=== PATIENT | female | born 1985 | race Caucasian/White ===

== ENCOUNTER 2017-04-22 00:21 | Emergency (ER) | payer OTHER ==
[2017-04-22 00:39] VITALS: BP 118/79; PULSE 88; BMI 24.2
--- NOTE | 2017-04-22 02:03 | PDOC ---
History of Present Illness - General History Source: Patient Exam Limitations: No Limitations <Gary Guido - Last Filed: 04/22/17 02:03> <Jacquie Quevedo - Last Filed: 04/23/17 01:37> - General Chief Complaint: Chest Pain Stated Complaint: CHEST PAIN Time Seen by Provider: 04/22/17 00:47 - History of Present Illness Initial Comments: 04/22/17 02:03 Patient is a 31-year-old female with a significant past medical history of bipolar disorder, who presents to the ED via EMS for left sided chest pain. Patient states that the chest pain began at 11:15 PM but has dissipated after taking 1 bruce pill. She describes the left sided chest pain as sharp and throbbing. She complains of left arm weakness and sharp pain in the right arm. She denies SOB, palpitations, fever, chills, nausea, vomiting, diarrhea. She denies dysuria, frequency, hematuria. She states this feels different from her anxiety attacks. She smokes two cigarettes a day for the past year. (Gary Guido) Past History <Gary Guido - Last Filed: 04/22/17 02:03> - Past Medical History Psychiatric Problems: Yes (ANXIETY.) Suicide Attempt (Hx): No - Surgical History Abdominal Surgery: Yes (cyst removal, Rt breast/low back) Cholecystectomy: Yes - Psycho/Social/Smoking Cessation Hx Anxiety: Yes Suicidal Ideation: No Smoking Status: Yes Smoking History: Current every day smoker Have you smoked in the past 12 months: No Number of Cigarettes Smoked Daily: 1 Information on smoking cessation initiated: No 'Breaking Loose' booklet given: 01/22/14 Hx Alcohol Use: No Drug/Substance Use Hx: No Substance Use Type: None <Jacquie Quevedo - Last Filed: 04/23/17 01:37> - Past Medical History Allergies/Adverse Reactions: Allergies Allergy/AdvReac Type Severity Reaction Status Date / Time No Known Allergies Allergy Verified 03/01/15 15:11 Home Medications: Ambulatory Orders LamoTRIgine [LaMICtal] 150 mg PO DAILY 03/01/15 Review of Systems - Review of Systems Able to Perform ROS?: Yes <Gary Guido - Last Filed: 04/22/17 02:03> <Jacquie Quevedo - Last Filed: 04/23/17 01:37> - Review of Systems Comments:: 04/22/17 02:05 CONSTITUTIONAL: Absent: fever, chills, diaphoresis, generalized weakness, malaise, loss of appetite HEENT: Absent: rhinorrhea, nasal congestion, throat pain, throat swelling, difficulty swallowing, mouth swelling, ear pain, eye pain, visual Changes CARDIOVASCULAR: Present: left sided chest pain Absent: syncope, palpitations, irregular heart rate, lightheadedness, peripheral edema RESPIRATORY: Absent: cough, shortness of breath, dyspnea with exertion, orthopnea, wheezing, stridor, hemoptysis GASTROINTESTINAL: Absent: abdominal pain, abdominal distension, nausea, vomiting, diarrhea, constipation, melena, hematochezia GENITOURINARY: Absent: dysuria, frequency, urgency, hesitancy, hematuria, flank pain, genital pain MUSCULOSKELETAL: Present: left arm weakness. sharp pain in the right arm. Absent: myalgia, arthralgia, joint swelling SKIN: Absent: rash, itching, pallor HEMATOLOGIC/IMMUNOLOGIC: Absent: easy bleeding, easy bruising, lymphadenopathy, frequent infections ENDOCRINE: Absent: unexplained weight gain, unexplained weight loss, heat intolerance, cold intolerance NEUROLOGIC: Absent: headache, focal weakness or paresthesias, dizziness, unsteady gait, seizure, mental status changes, bladder or bowel incontinence PSYCHIATRIC: Absent: anxiety, depression, suicidal or homicidal ideation, hallucinations. (Gary Guido) *Physical Exam <Gary Guido - Last Filed: 04/22/17 02:03> <SaeJacquie Sangeetha - Last Filed: 04/23/17 01:37> - Vital Signs Last Vital Signs Temp Pulse Resp BP Pulse Ox 88 16 118/79 98 04/22/17 00:37 04/22/17 00:37 04/22/17 00:37 04/22/17 00:37 - Physical Exam Comments: 04/22/17 02:07 GENERAL: Well developed, well nourished. Awake and alert. No acute distress. HEENT: Normocephalic, atraumatic. PERRLA, EOMI. No conjunctival pallor. Sclera are non- icteric. Moist mucous membranes. Oropharynx is clear. NECK: Supple. Full ROM. No JVD. Carotid pulses 2+ and symmetric, without bruits. No thyromegaly. No lymphadenopathy. CARDIOVASCULAR: Regular rate and rhythm. No murmurs, rubs, or gallops. Distal pulses are 2+ and symmetric. PULMONARY: No evidence of respiratory distress. Lungs clear to auscultation bilaterally. No wheezing, rales or rhonchi. ABDOMINAL: Soft. Non-tender. Non-distended. No rebound or guarding. No organomegaly. Normoactive bowel sounds. MUSCULOSKELETAL Normal range of motion at all joints. No bony deformities or tenderness. No CVA tenderness. EXTREMITIES: No cyanosis. No clubbing. No edema. No calf tenderness. SKIN: Warm and dry. Normal capillary refill. No rashes. No jaundice. NEUROLOGICAL: Alert, awake, appropriate. Cranial nerves 2-12 intact. No deficits to light touch and temperature in face, upper extremities and lower extremities. No motor deficits in the in face, upper extremities and lower extremities. Normoreflexic in the upper and lower extremities. Normal speech. Toes are down-going bilaterally. Gait is normal without ataxia. PSYCHIATRIC: Cooperative. Good eye contact. Appropriate mood and affect. (Gary Guido) ED Treatment Course - LABORATORY CBC & Chemistry Diagram: 04/22/17 02:00 04/22/17 02:00 <Jacquie Quevedo - Last Filed: 04/23/17 01:37> - ADDITIONAL ORDERS Additional order review: 04/22/17 02:00 RBC 3.65 MCV 86.3 MCHC 33.2 RDW 14.4 MPV 9.6 Neutrophils % 61.4 Lymphocytes % 26.7 D Monocytes % 7.8 Eosinophils % 3.3 D Basophils % 0.8 *DC/Admit/Observation/Transfer <Gary Guido - Last Filed: 04/22/17 02:03> <Jacquie Quevedo - Last Filed: 04/23/17 01:37> Diagnosis at time of Disposition: Chest pain - Discharge Dispostion Disposition: AGAINST MEDICAL ADVICE - Referrals Referrals: Hector Millan MD [Primary Care Provider] - - Attestations Scribe Attestion: 04/22/17 02:07 Documentation prepared by Gary Guido, acting as medical equipment repair technician for Jacquie Quevedo MD. (Gary Guido)
[2017-04-22 02:09] LABS: BASOPHIL 0.8 % (0-2.0); EOSINOPHIL 3.3 % (0-4.5); MCH 28.6 pg (25.7-33.7); MCHC 33.2 g/dl (32.0-36.0); MEAN CELL VOLUME 86.3 fl (80-96); MEAN PLT VOLUME 9.6 fl (7.5-11.1); NEUTROPHILS 61.4 % (42.8-82.8); PLATELET COUNT 244 K/MM3 (134-434); RDW 14.4 % (11.6-15.6); WHITE BLOOD COUNT 7.7 K/mm3 (4.0-10.0)
[2017-04-22 02:33] LABS: ALBUMIN 3.6 g/dl (3.4-5.0); ANION GAP 6 (8-16); BILIRUBIN,TOTAL 0.2 mg/dL (0.2-1.0); CALCIUM 8.6 mg/dL (8.5-10.1); CO2 28 mmol/L (21-32); CREATININE 0.6 mg/dL (0.55-1.02); GLUCOSE,RANDOM 86 mg/dL (74-106); SGOT/AST 13 U/L (15-37); SGPT/ALT 16 U/L (12-78); TOT PROT 6.8 g/dl (6.4-8.2)
[2017-04-22 02:35] LABS: ALK PHOS 62 U/L (45-117); TROPONIN I < 0.02 ng/ml (0.00-0.05)
--- NOTE | 2017-04-22 12:34 | EKG ---
Test Reason : Blood Pressure : / mmHG Vent. Rate : 078 BPM Atrial Rate : 078 BPM P-R Int : 158 ms QRS Dur : 104 ms QT Int : 370 ms P-R-T Axes : 000 037 019 degrees QTc Int : 421 ms NORMAL SINUS RHYTHM NORMAL ECG WHEN COMPARED WITH ECG OF 03-MAR-2013 23:16, NO SIGNIFICANT CHANGE WAS FOUND Confirmed by ZONIA HAN MD ([id number]) on 04/22/2017 12:34:06 PM Referred By: Confirmed By:ZONIA HAN MD
== END 2017-04-22 04:31 | disposition left against medical advice (07) ==
LOC: JER 00:21
DX: R07.9 Chest pain, unspecified (principal); R53.1 Weakness; F31.9 Bipolar disorder, unspecified; F41.9 Anxiety disorder, unspecified
CPT/HCPCS: 36415; 80053; 82550; 84484; 84703; 85025; 93005; 93010; 99283-25

== ENCOUNTER 2019-09-25 08:34 | Day surgery (SDC) | payer OTHER ==
[2019-09-24 13:51] VITALS: BMI 34.5
[2019-09-25] MEDS ORDERED: PROPOFOL 20 ML ONE ×2 (10:01→10:52)
[2019-09-25] MEDS ORDERED: MIDAZOLAM HCL 2 MG/2 ML SINGLE DOSE VIAL ONE ×2 (10:01)
--- NOTE | 2019-09-25 10:37 | HP ---
History & Physical Update - History History: No Change (Menometrorrhagia, obesity. Noted/H&P reviewed from 2018) - Physical Physical: No Change - Assessment Assessment: No Change - Plan Plan: No Change (D&C/hysteroscopy)
[2019-09-25] MEDS ORDERED: ceFAZolin SODIUM 1 GM VIAL IVPB ONE (10:41)
[2019-09-25] MEDS ORDERED: GLYCOPYRROLATE 0.2 MG/1 ML VIAL ONE (10:44)
[2019-09-25] MEDS ORDERED: SODIUM CHLORIDE 0.9% P/F 10 ML VIAL IJ ONE (10:50)
[2019-09-25] MEDS ORDERED: KETOROLAC TROMETHAMINE 30 MG/1 ML VIAL ONE (10:50)
[2019-09-25] MEDS ORDERED: ceFAZolin SODIUM 1 GM VIAL ONE (10:50)
[2019-09-25] MEDS ORDERED: LIDOCAINE HCL/PF 2% SDV 5ML VIAL ONE (10:50)
[2019-09-25] MEDS ORDERED: DEXAMETHASONE SOD PHOSPHATE 4 MG/1 ML VIAL ONE (10:50)
--- NOTE | 2019-09-25 11:25 | OP ---
Operative Note - Note: Operative Date: 09/25/19 Pre-Operative Diagnosis: Menometrorrhagia, obesity Operation: Hysteroscopy, D&C Findings: Normal uterine cavity, no lesions Post-Operative Diagnosis: Same as Pre-op Surgeon: Ralph Templeton Anesthesiologist/HAT BLOCKER: Nely Nogueira Anesthesia: General Specimens Removed: Endometrial curettings. Estimated Blood Loss (mls): 5 Blood Volume Replaced (mls): 0 Fluid Volume Replaced (mls): 500 Operative Report Dictated: Yes
[2019-09-25] MEDS ORDERED: KETOROLAC TROMETHAMINE 15 MG/ML VIAL ONE (11:37)
[2019-09-25] MEDS ORDERED: ACETAMINOPHEN 325 MG TABLET (FP) ONE (11:38)
[2019-09-25] MEDS ORDERED: oxyCODONE HCL 5 MG TABLET ONE (11:39)
[2019-09-25] MEDS ORDERED: KETOROLAC TROMETHAMINE 15 MG/ML VIAL IM ONE (11:43)
[2019-09-25] MEDS ORDERED: oxyCODONE HCL 5 MG TABLET PO ONE ×2 (11:52→13:45)
[2019-09-25] MEDS ORDERED: ACETAMINOPHEN 325 MG TABLET (FP) PO ONE (11:53)
--- NOTE | 2019-09-25 13:21 | OP ---
DATE OF OPERATION: 09/25/2019 PREOPERATIVE DIAGNOSIS: Menometrorrhagia, obesity. POSTOPERATIVE DIAGNOSIS: Menometrorrhagia, obesity. PROCEDURE: Hysteroscopy, dilation and curettage. SURGEON: Thomas Fuentes MD ANESTHESIOLOGIST: Nely Nogueira MD COMPLICATIONS: None. FINDINGS: Exam under anesthesia revealed a small anteverted uterus. No pelvic or adnexal masses were noted. Hysteroscopy revealed a normal endometrial cavity with no lesions or masses. Good hemostasis was noted postoperative. INTRAVENOUS FLUIDS: 500 mL. ESTIMATED BLOOD LOSS: 5 mL. PATHOLOGY: Endometrial curettings. DESCRIPTION OF THE PROCEDURE: Patient was met preoperatively. Risks, benefits, and alternatives were discussed in detail. The consent form was reviewed and explained. The patient verbalized her understanding and requested to proceed with the surgery. The patient was brought to the OR with the IV running. She was placed on the surgical table in the supine position. The general anesthesia was achieved without difficulty. The patient was placed in a dorsal lithotomy position using adjustable Prosper stirrups. She was examined under anesthesia with the findings as described above. The patient was then prepped and draped in the usual sterile fashion. A time-out was conducted as per standard protocol. A weighted speculum was introduced inside the vagina with good visualization of the cervix. The cervix was grasped with a single-tooth tenaculum. The endocervical canal was dilated using graduated Renteria dilators. A hysteroscope was gently advanced through the cervical canal and into the uterine cavity. The uterine cavity appeared normal. No lesions or masses noted. The hysteroscope was removed. A sharp curettage was performed. The tissue was sent to Pathology. Once this was completed, all of the instruments were removed. Good hemostasis was noted. Sponge, lap, and instrument counts were correct. The patient was returned to supine position. She was then transferred to recovery room in stable condition and awake. THOMAS FUENTES M.D. [id number]
[2019-09-25 13:37] VITALS: TEMP 97.8
[2019-09-25] MEDS ORDERED: ONDANSETRON 4 MG/2 ML VIAL IVPUSH PRN (13:41)
[2019-09-25] MEDS ORDERED: oxyCODONE HCL 5 MG TABLET PO PRN (13:41)
[2019-09-25] MEDS ORDERED: KETOROLAC TROMETHAMINE 15 MG/ML VIAL IVPUSH ONE (13:45)
[2019-09-25] MEDS ORDERED: LACTATED RINGERS SOLUTION 1,000 ML IV SCH (13:45)
[2019-09-25] MEDS ORDERED: ACETAMINOPHEN 500 MG TABLET (FP) PO ONE (13:46)
[2019-09-25 14:54] VITALS: BP 118/82; PULSE 74
--- NOTE | 2019-09-28 16:39 | PATH ---
Surgical Pathology Report Patient Name: QUINN WTAERS [facility]. Rec. #: [id number] /Age/Gender: 1985 (Age: 34) / F Account: [id number] Location: [facility] SURGICAL Taken: 09/25/2019 Received: 09/25/2019 Reported: 09/28/2019 Physicians: Ralph Templeton M.D. Specimen(s) Received ENDOMETRIAL CURETTINGS Clinical History Excessive and frequent menstruation with irregular cycle Final Diagnosis ENDOMETRIAL CURETTINGS, DILATION AND CURETTAGE: WEAKLY PROLIFERATIVE ENDOMETRIUM, STRIPS OF ENDOMETRIAL GLANDS, AND SCANT BENIGN CERVICAL EPITHELIUM ADMIXED WITH BLOOD AND MUCUS. Electronically Signed Ángela Palafox M.D. Gross Description Received in formalin labeled "endometrial curettings," is a 2.0 x 1.6 x 0.3 cm aggregate of duron red soft tissue fragments. The formalin is filtered and the specimen is entirely submitted in one cassette. /09/25/2019 saudi09/25/2019
== END 2019-09-25 14:40 | disposition home or self-care (01) ==
LOC: JASU-SURG 08:34
PROVIDERS: ATTEND Obstetrics & Gynecology
PROC: 0UDB7ZX Extraction of Endometrium, Via Natural or Artificial Opening, Diagnostic (ICD-10-PCS; principal; 2019-09-25 10:00)
PROC: 0UJD8ZZ Inspection of Uterus and Cervix, Via Natural or Artificial Opening Endoscopic (ICD-10-PCS; 2019-09-25 10:00)
DX: N92.1 Excessive and frequent menstruation with irregular cycle (principal)
CPT/HCPCS: 36415; 84703; 86850; 86900; 86901; 88305-TC; 94760

== ENCOUNTER 2019-10-02 17:38 | Emergency (ER) | payer OTHER ==
[2019-10-02 17:45] VITALS: BP 122/78; PULSE 81; TEMP 98.3; BMI 35.6
--- NOTE | 2019-10-02 20:01 | PDOC ---
History of Present Illness - General Chief Complaint: Pain Stated Complaint: LT SIDE ABD PAIN Time Seen by Provider: 10/02/19 19:32 History Source: Patient Exam Limitations: Clinical Condition - History of Present Illness Travel History: No Initial Comments: 10/02/19 19:57 Patient with past medical history of fibromyalgia, chronic back pains on hydrocodone and medical marijuana. Endometriosis status post D&C a week ago presented with complaint of worsening lower left abdominal pain which she described as sharp pains with intermittent cramping suprapubic pain. Patient reported had mild pain over a week ago and the pain worsened after doing D&C for irregular menstrual. And was found to have endometriosis. Denies fever, chills. Patient reported history of chronic constipation with last bowel movement this morning with small hard pellets of bowel. Patient reports she has to use suppository to have a bowel movement. Denies any other symptoms Timing/Duration: reports: getting worse Quality: reports: sharpness Abdominal Pain Onset Location: reports: LLQ, suprapubic Past History - Past Medical History Allergies/Adverse Reactions: Allergies Allergy/AdvReac Type Severity Reaction Status Date / Time No Known Allergies Allergy Verified 10/02/19 17:45 Home Medications: Ambulatory Orders Ascorbic Acid [Vitamin C] 1,000 mg PO DAILY 09/24/19 Ashwagandha 1 tab PO DAILY 09/24/19 Biotin 2,500 mcg PO DAILY 09/24/19 Cholecalciferol (Vitamin D3) [Vitamin D3] 2,000 unit PO DAILY 09/24/19 Cyanocobalamin [Vitamin B12 -] 100 mcg PO DAILY 09/24/19 Hydrocodone/Acetaminophen [Hydrocodon-Acetaminoph 7.5-325] 1 each PO PRN PRN Iron,Carb/Vit C/Vit B12/Folic [Iron 100 Plus Tablet] 28 each PO DAILY 09/24/19 Levocarnitine HCl [Yluebi-y-Lgnudrvgy HCl] 750 gm PO DAILY 09/24/19 Medical Marijuana [Medical Marijuana Capsules] 1 cap BID 09/24/19 Multivitamin [Multiple Vitamins] 1 each PO DAILY 09/24/19 Norethindrone-E.estradiol-Iron [Junel Fe 24 Tablet] 1 each PO DAILY 09/24/19 Omeprazole 40 mg PO DAILY 09/24/19 Pentosan Polysulfate Sodium [Elmiron] 100 mg PO TID 09/24/19 Pregabalin [Lyrica] 100 mg PO TID 09/24/19 [place] Oil 1,000 mg PO BID 09/24/19 Sumatriptan Succinate 100 mg PO PRN PRN 09/24/19 Topiramate 50 mg PO HS 09/24/19 Vitamin E 450 unit PO DAILY 09/24/19 metroNIDAZOLE [Flagyl -] 500 mg PO BID #14 tablet 09/25/19 Linaclotide [Linzess] 145 mcg PO DAILY #10 cap 10/02/19 Anemia: No Asthma: No Cancer: No Cardiac Disorders: No CVA: No COPD: No CHF: No Dementia: No Diabetes: No GI Disorders: No Disorders: No HTN: No Hypercholesterolemia: No Liver Disease: No Psychiatric Problems: Yes (ANXIETY.) Seizures: No Thyroid Disease: No - Surgical History Abdominal Surgery: Yes (cyst removal, Rt breast/low back) Cholecystectomy: Yes - Psycho Social/Smoking Cessation Hx Smoking Status: Yes Smoking History: Never smoked Have you smoked in the past 12 months: No Number of Cigarettes Smoked Daily: 1 'Breaking Loose' booklet given: 01/22/14 Hx Alcohol Use: No Drug/Substance Use Hx: Yes Substance Use Type: Marijuana Review of Systems - Review of Systems Able to Perform ROS?: Yes Is the patient limited Setswana proficient: No Constitutional: No: Chills, Fever, Malaise HEENTM: No: Symptoms Reported, See HPI, Eye Pain, Blurred Vision, Tearing, Recent change in vision, Double Vision, Cataracts, Ear Pain, Ocular Prothesis, Ear Discharge, Nose Pain, Nose Congestion, Tinnitus, Nose Bleeding, Hearing Loss , Throat Pain, Throat Swelling, Mouth Pain, Dental Problems, Difficulty Swallowing, Mouth Swelling, Other Respiratory: No: Symptoms reported, See HPI, Cough, Orthopnea, Shortness of Breath, SOB with Exertion, SOB at Rest, Stridor, Wheezing, Productive cough, Hemoptysis, Other Cardiac (ROS): No: Symptoms Reported, See HPI, Chest Pain, Edema, Irregular Heart Rate, Lightheadedness, Palpitations, Syncope, Chest Tightness, Other ABD/GI: Yes: Symptoms Reported, See HPI, Constipated, Abdominal cramping (LLQ). No: Abdominal Distended, Abd. Pain w/ defecation, Blood Streaked Bowels, Difficulty Swallowing, Nausea, Poor Appetite, Vomiting, Indigestion : No: Burning, Dysuria, Discharge, Frequency, Urgency Musculoskeletal: Yes: Symptoms Reported, Back Pain (chronic lower back pain) Integumentary: No: Symptoms Reported Neurological: No: Symptoms reported All Other Systems: Reviewed and Negative *Physical Exam - Vital Signs Last Vital Signs Temp Pulse Resp BP Pulse Ox 98.3 F 81 18 122/78 98 10/02/19 17:42 10/02/19 17:42 10/02/19 17:42 10/02/19 17:42 10/02/19 17:42 - Physical Exam 10/02/19 20:00 GENERAL: Well developed, well nourished. Awake and alert. No acute distress. HEENT: Normocephalic, atraumatic. PERRLA, EOMI. No conjunctival pallor. Sclera are non-icteric. Moist mucous membranes. Oropharynx is clear. NECK: Supple. Full ROM. CARDIOVASCULAR: Regular rate and rhythm. No murmurs, rubs, or gallops. Distal pulses are 2+ and symmetric. PULMONARY: No evidence of respiratory distress. Lungs clear to auscultation bilaterally. No wheezing, rales or rhonchi. ABDOMINAL: Soft. Moderate suprapubic and left lower quadrant tenderness. Non-distended. No rebound or guarding. No organomegaly. Normoactive bowel sounds. MUSCULOSKELETAL Normal range of motion at all joints. SKIN: Warm and dry. Normal capillary refill. No rashes.. NEUROLOGICAL: Alert, awake, appropriate. Gait is normal without ataxia. PSYCHIATRIC: Cooperative. Good eye contact. Appropriate mood General Appearance: Yes: Nourished, Appropriately Dressed. No: Apparent Distress ED Treatment Course - LABORATORY CBC & Chemistry Diagram: 10/02/19 20:22 10/02/19 20:22 - RADIOLOGY Radiology Studies Ordered: Category Date Time Status ABDOMEN & PELVIS CT WITH CONTR [CT] Stat CT Scan 10/02/19 19:53 Ordered Medical Decision Making - Medical Decision Making 10/02/19 19:58 Patient with past medical history of fibromyalgia, chronic back pains on hydrocodone and medical marijuana. Endometriosis status post D&C a week ago presented with complaint of worsening lower left abdominal pain which she described as sharp pains with intermittent cramping suprapubic pain. Patient reported had mild pain over a week ago and the pain worsened after doing D&C for irregular menstrual. And was found to have endometriosis. Denies fever, chills. Patient reported history of chronic constipation with last bowel movement this morning with small hard pellets of bowel. Patient reports she has to use suppository to have a bowel movement. Denies any other symptoms Exam significant for moderate tenderness to left lower abdomen and suprapubic region without guarding or rebound. Normal bowel sounds diffusely. No CVA tenderness. Patient symptoms likely constipation versus less likely colitis. CBC, CMP lab ordered. UA, urine hCG and urine culture lab ordered. Abdominal / pelvis CAT scan ordered to rule out acute pathology 10/02/19 22:5CBC and chemistry lab was unremarkable. Abdominal pelvic CT showed mild diverticulosis without evidence of diverticulitis with small 2 mm nonobstructive stone. Small amount of stool seen on abdominal CT Patient symptoms likely caused by constipation and stable for discharge on MiraLAX as needed for constipation with GI follow-up Discharge - Discharge Information Problems reviewed: Yes Clinical Impression/Diagnosis: Constipation Qualifiers: Constipation type: slow transit constipation Qualified Code(s): K59.01 - Slow transit constipation Abdominal pain Qualifiers: Abdominal location: left lower quadrant Qualified Code(s): R10.32 - Left lower quadrant pain Condition: Stable Disposition: HOME - Admission No - Additional Discharge Information Prescriptions: Linaclotide [Linzess] 145 mcg PO DAILY #10 cap - Follow up/Referral Referrals: Sae Kelly MD [Primary Care Provider] - - Patient Discharge Instructions Patient Printed Discharge Instructions: Increased Dietary Fiber May Improve Constipation Conditions With Pelvic Seferino, DI for Constipation Additional Instructions: Your blood work was normal. Abdominal CAT scan shows small 2 mm nonobstructing stone and also some stool in the bowel which could be the cause of your pain. Take prescribed medication as prescribed for constipation. Increase fluid intake. Follow-up with your GI doctor as discussed - Post Discharge Activity
[2019-10-02 20:46] LABS: BASO % 0.4 % (0-2.0); EOS % 0.5 % (0-4.5); HEMATOCRIT 36.7 % (32.4-45.2); HEMOGLOBIN 12.5 GM/dL (10.7-15.3); MEAN CELL VOLUME 82.5 fl (80-96); MEAN PLT VOLUME 9.3 fl (7.5-11.1); MONO % 4.6 % (3.8-10.2); NEUT % 76.5 % (42.8-82.8); PLATELET COUNT 316 K/MM3 (134-434); RBC 4.44 M/mm3 (3.60-5.2); RDW 15.1 % (11.6-15.6); WHITE BLOOD COUNT 8.2 K/mm3 (4.0-10.0)
[2019-10-02] MEDS ORDERED: POLYETHYLENE GLYCOL 3350 119 GM BTL PO ONE (20:49)
[2019-10-02] MEDS ORDERED: LACTULOSE 20 GM/30 ML UDC (FOR ORAL USE ONLY) PO ONE (20:49)
[2019-10-02 20:56] LABS: URINE APPEARANCE CLEAR; URINE BILIRUBIN NEGATIVE (NEGATIVE); URINE COLOR YELLOW; URINE GLUCOSE (UA) NEGATIVE (NEGATIVE); URINE KETONE TRACE (NEGATIVE); URINE LEUK ESTERASE NEGATIVE (NEGATIVE); URINE NITRITE NEGATIVE (NEGATIVE); URINE PROTEIN NEGATIVE (NEGATIVE); URINE UROBILINOGEN 0.2 mg/dL (0.2-1.0)
[2019-10-02] MEDS ORDERED: SODIUM CHLORIDE 1,000 ML IV STA (20:58)
[2019-10-02] MEDS ORDERED: Methylnaltrexone Bromide 12 MG/0.6 ML KIT SQ SCH (21:15)
[2019-10-02 21:20] LABS: ALBUMIN 3.9 g/dl (3.4-5.0); BILIRUBIN,TOTAL 0.3 mg/dL (0.2-1); BLOOD UREA NITROGEN 10.9 mg/dL (7-18); CALCIUM 9.1 mg/dL (8.5-10.1); CREATININE 0.7 mg/dL (0.55-1.3); POTASSIUM 4.1 mmol/L (3.5-5.1); TOT PROT 7.8 g/dl (6.4-8.2)
[2019-10-02] MEDS ORDERED: LACTULOSE 20 GM/30 ML UDC (FOR ORAL USE ONLY) ONE (22:48)
== END 2019-10-03 00:22 | disposition home or self-care (01) ==
LOC: JER 17:38
PROC: 3E0337Z Introduction of Electrolytic and Water Balance Substance into Peripheral Vein, Percutaneous Approach (ICD-10-PCS; principal; 2019-10-02)
PROC: 3E013GC Introduction of Other Therapeutic Substance into Subcutaneous Tissue, Percutaneous Approach (ICD-10-PCS; 2019-10-02)
DX: K59.00 Constipation, unspecified (principal); Z98.890 Other specified postprocedural states; M79.7 Fibromyalgia; M54.89 Other dorsalgia; G89.29 Other chronic pain
CPT/HCPCS: 36415; 74177-TC; 80053; 81003; 84703; 85025; 87086; 87186; 96360; 96372; 99282-25; J7030; Q9967

== ENCOUNTER 2019-11-09 08:47 | Day surgery (SDC) | payer OTHER ==
[2019-11-06 16:52] VITALS: BMI 33.5
[2019-11-09 09:29] VITALS: TEMP 97.9
[2019-11-09 10:58] VITALS: BP 117/65; PULSE 65
== END 2019-11-09 11:01 | disposition home or self-care (01) ==
LOC: JASU-ENDO 08:47
PROVIDERS: ATTEND Internal Medicine Gastroenterology
PROC: 0DJD8ZZ Inspection of Lower Intestinal Tract, Via Natural or Artificial Opening Endoscopic (ICD-10-PCS; principal; 2019-11-09 09:00)
DX: R10.9 Unspecified abdominal pain (principal); K64.8 Other hemorrhoids
CPT/HCPCS: 36415; 84703

== ENCOUNTER 2022-06-18 05:26 | Day surgery (SDC) | payer OTHER ==
[2022-06-14 12:45] VITALS: BMI 29.9
[2022-06-18] MEDS ORDERED: PROPOFOL 20 ML ONE (12:56)
[2022-06-18] MEDS ORDERED: SUCCINYLCHOLINE CHLORIDE 200 MG/10 ML SYRINGE ONE (12:56)
[2022-06-18] MEDS ORDERED: MIDAZOLAM HCL 2 MG/2 ML SINGLE DOSE VIAL ONE (12:57)
[2022-06-18] MEDS ORDERED: ROCURONIUM BROMIDE 50 MG/5 ML SYRINGE ONE (12:57)
[2022-06-18] MEDS ORDERED: ONDANSETRON 4 MG/2 ML VIAL ONE ×2 (13:00→15:47)
[2022-06-18] MEDS ORDERED: DEXAMETHASONE SOD PHOSPHATE 4 MG/1 ML VIAL ONE ×2 (13:00→14:28)
[2022-06-18] MEDS ORDERED: KETOROLAC TROMETHAMINE 30 MG/1 ML VIAL ONE ×2 (13:00→14:58)
[2022-06-18] MEDS ORDERED: BUPIVACAINE HCL 100 ML ONE (13:15)
[2022-06-18] MEDS ORDERED: ceFAZolin SODIUM 1 GM VIAL ONE (14:28)
[2022-06-18] MEDS ORDERED: ceFAZolin SODIUM 1 GM VIAL IVPB ONE (14:28)
[2022-06-18] MEDS ORDERED: BUPIVACAINE HCL/PF 0.5% (5 MG/ML) 30 ML VIAL IJ ONE (14:55)
[2022-06-18] MEDS ORDERED: LACTATED RINGERS SOLUTION 1,000 ML IV SCH (15:15)
[2022-06-18] MEDS ORDERED: ONDANSETRON 4 MG/2 ML VIAL IVPUSH PRN (15:15)
[2022-06-18] MEDS ORDERED: PROMETHAZINE HCL 25 MG/1 ML VIAL IVPUSH PRN (15:15)
[2022-06-18] MEDS ORDERED: oxyCODONE HCL 5 MG TABLET PO PRN ×2 (15:15)
[2022-06-18 16:51] VITALS: RESP 18
[2022-06-18 17:16] VITALS: BP 123/77; PULSE 67; TEMP 97.8
== END 2022-06-18 17:35 | disposition home or self-care (01) ==
LOC: JASU-SURG 05:26
PROVIDERS: ATTEND Obstetrics & Gynecology
PROC: 0U574ZZ Destruction of Bilateral Fallopian Tubes, Percutaneous Endoscopic Approach (ICD-10-PCS; principal; 2022-06-18 12:30)
DX: Z30.2 Encounter for sterilization (principal)
CPT/HCPCS: 81025; 94760

== ENCOUNTER 2023-09-12 14:37 | Emergency (ER) | payer OTHER ==
[2023-09-12 14:48] VITALS: BP 119/70; PULSE 66; RESP 17; TEMP 98.4; BMI 29.7
== END 2023-09-12 15:51 | disposition home or self-care (01) ==
LOC: JERFT 14:37
DX: U07.1 COVID-19 (principal)
CPT/HCPCS: 0241U-QW; 99283-25